=== PATIENT | female | born 1990 | race African-American/Black ===

== ENCOUNTER 2018-10-01 23:30 | Emergency (ER) | payer OTHER ==
[~2018-10-01] VITALS: Ht 149.9 cm; Wt 59.9 kg
[2018-10-02 00:06] LABS: URINE BILIRUBIN NEGATIVE (Negative); URINE BLOOD 3+ (Negative); URINE CLARITY CLEAR; URINE COLOR YELLOW; URINE GLUCOSE-RANDOM* NEGATIVE (Negative); URINE KETONES 2+ (Negative); URINE LEUKOCYTES-REFLEX NEGATIVE (Negative); URINE NITRITE-REFLEX NEGATIVE (Negative); URINE PROTEIN (DIPSTICK) 1+ (Negative); URINE SPECIFIC GRAVITY >= 1.030 (1.005-1.035); URINE UROBILINOGEN 0.2 E.U./dl (0.2-1.0)
[2018-10-02 00:25] LABS: CASTS None Seen /LPF (None Seen); MUCUS >6 Heavy strn/LPF (None Seen); SQUAMOUS >10 Many /LPF (0-3); URINE RBC >20 Many /HPF (0-2); URINE WBC-REFLEX 0-5 Rare /HPF (0-5)
[2018-10-02 00:26] LABS: CRYSTALS None Seen /LPF (None Seen)
[2018-10-02 00:45] LABS: ABSOLUTE NEUTROPHILS 7.3 thou/uL (1.4-8.2); BASOPHILS 0.5 % (0.0-2.0); EOSINOPHILS 0.1 % (0.0-3.0); HEMATOCRIT 38.3 % (37.0-47.0); HEMOGLOBIN 13.3 gm/dL (12.0-15.0); LYMPHOCYTES 13.2 % (24.0-44.0); MCH 32.6 pg (26.0-34.0); MCHC 34.8 g/dL (28.0-37.0); MCV 93.7 fL (80.0-100.0); MONOCYTES 9.1 % (1.0-8.0); PLATELET COUNT 217 thou/uL (150-400); POLYS 77.1 % (36.0-66.0); RBC 4.09 mil/uL (4.20-5.00); RDW 12.7 % (10.5-14.5); WBC 9.5 thou/uL (4.0-11.0)
[2018-10-02 00:47] LABS: CREATININE 1.5 mg/dL (0.6-1.0); POTASSIUM 3.5 mmol/L (3.5-5.1)
[2018-10-02 00:53] LABS: ALBUMIN 3.8 g/dL (3.4-5.0); TOTAL BILIRUBIN 0.5 mg/dL (<0.1-1.0); TOTAL PROTEIN 7.8 g/dL (6.4-8.2)
[2018-10-02] MEDS ORDERED: XARELTO20 MG PO (01:43)
[2018-10-02] MEDS ORDERED: FLOMAX0.4 MG PO (02:22)
[2018-10-02] MEDS ORDERED: TORADOL 10 MG T10 MG PO (02:22)
[2018-10-02] MEDS ORDERED: BACTRIM DS TAB1 EACH PO (02:22)
[2018-10-02 02:49] VITALS: BP 106/61
== END 2018-10-02 02:49 | disposition home or self-care (01) ==
LOC: ER 23:30
PROVIDERS: Emergency Medicine
DX: N13.2 Hydronephrosis with renal and ureteral calculous obstruction (principal)

== ENCOUNTER 2021-09-05 17:45 | Emergency (ER) | payer OTHER ==
[~2021-09-05] VITALS: Ht 152.4 cm; Wt 68.0 kg
[~2021-09-05 17:45] MED LIST: BACTRIM DS TAB1 EACH PO; FLOMAX0.4 MG PO; TORADOL 10 MG T10 MG PO; XARELTO20 MG PO
[2021-09-05 17:48] VITALS: BP 127/69
== END 2021-09-05 18:36 | disposition home or self-care (01) ==
LOC: ER 17:45
PROVIDERS: Emergency Medicine
DX: U07.1 COVID-19 (principal); Z79.899 Other long term (current) drug therapy